=== PATIENT | male | born 1970 | race Two or more races ===

== ENCOUNTER 2024-02-14 06:22 | Day surgery (SDC) | payer OTHER ==
[2024-02-14] MEDS ORDERED: CEFAZOLIN SODIUM 1,000 MG VIAL ONE (08:09)
[2024-02-14] MEDS ORDERED: BUPIVACAINE HCL 30 ML VIAL IJ ONE (10:00)
[2024-02-14] MEDS ORDERED: SUGAMMADEX SODIUM 200 MG/2 ML VIAL IV ONE (10:31)
[2024-02-14] MEDS ORDERED: TYLENOL ARTHRI650 MG PO (10:46)
[2024-02-14] MEDS ORDERED: KETO10TA2 PO (10:46)
[2024-02-14] MEDS ORDERED: TRAMADOL HCL50 MG PO (10:46)
[2024-02-14] MEDS ORDERED: MIRALAX17 GM PO (10:46)
== END 2024-02-14 13:10 | disposition home or self-care (01) ==
LOC: CIR.AMB 06:22
PROVIDERS: ATTEND Surgery
DX: K42.0 Umbilical hernia with obstruction, without gangrene (principal)
CPT/HCPCS: 49594; C1781